=== PATIENT | female | born 1965 | race Two or more races ===

== ENCOUNTER 2019-07-18 19:32 | Emergency (ER) | payer MEDICAID ==
[~2019-07-18] VITALS: Ht 160 cm; Wt 68.2 kg
[2019-07-18] MEDS ORDERED: 0.9% SODIUM CHLORIDE 10 ML SYRINGE IVP PRN (23:30)
[2019-07-18] MEDS ORDERED: MORPHINE SULFATE 4 MG/ML SYRINGE IVP ONE (23:30)
[2019-07-18] MEDS ORDERED: AMPICILLIN SODIUM/SULBACTAM NA 1.5 GM/VIAL IM ONE (23:30)
[2019-07-19 00:01] LABS: BASOPHILS % (AUTO) 0.2 % (0.0-2.0); EOSINOPHILS % (AUTO) 0.1 % (1.0-6.0); HEMATOCRIT 38.9 % (36-46); LYMPHOCYTES # (AUTO) 1.5 K/uL (1.0-4.8); LYMPHOCYTES % (AUTO) 13.6 % (22.0-44.0); MEAN CORPUSCULAR HGB CONC 33.4 G/dL (31.0-37.0); MEAN CORPUSCULAR VOLUME 93 fL (80-100); MONOCYTES # (AUTO) 0.9 K/uL (0.1-1.0); MONOCYTES % (AUTO) 8.6 % (2.0-9.0); NEUTROPHILS # (AUTO) 8.5 K/uL (1.8-7.7); NEUTROPHILS % (AUTO) 77.5 % (40.0-70.0); RED CELL DISTRIBUTION WIDTH 13.1 % (11.5-14.5)
[2019-07-19 00:15] LABS: ANION GAP 9 mmol/L (8-16); CALCIUM, TOTAL 8.8 mg/dL (8.8-10.5); CARBON DIOXIDE 28 mmol/L (22-29); CHLORIDE 103 mmol/L (98-107); CREATININE 0.76 mg/dL (0.60-1.30); GLOMERULAR FILTR. RATE CALC > 60 mL/min (>60); GLUCOSE,RANDOM 118 mg/dL (70-110); POTASSIUM 3.3 mmol/L (3.5-5.1); SODIUM SERUM 140 mmol/L (136-145); UREA NITROGEN, BLOOD 9 mg/dL (7-18)
[2019-07-19] MEDS ORDERED: AMPICILLIN SODIUM/SULBACTAM NA 3 GM/VIAL IM ONE (00:15)
[2019-07-19 00:21] LABS: ALANINE AMINOTRANSFERASE 69 U/L (12-78); ALBUMIN 3.4 g/dL (3.4-5.0); ALKALINE PHOSPHATASE 91 U/L (46-116); ASPARTATE AMINOTRANSFERASE 51 U/L (15-37); BILIRUBIN,TOTAL 0.8 mg/dL (0.1-1.0); TOTAL PROTEIN, SERUM 7.5 g/dL (6.4-8.2)
[2019-07-19 00:24] LABS: LACTIC ACID 0.9 mmol/L (0.4-2.0)
[2019-07-19 00:28] LABS: PLATELET COUNT (AUTO) 97 K/uL (150-450); PLATELET MORPHOLOGY COMMENT LARGE PLTS PRESENT
[2019-07-19] MEDS ORDERED: IOVERSOL 350 MG/ML 100 ML VIAL ONE ×2 (00:36)
[2019-07-19] MEDS ORDERED: SODIUM CHLORIDE 0.9% 100 ML ONE (00:37)
[2019-07-19] MEDS ORDERED: LIDOCAINE/PF 2% 5 ML VIAL INJ ONE (01:00)
[2019-07-19] MEDS ORDERED: POTASSIUM CHLORIDE 10% 40 MEQ/30 ML LIQUID UDCUP PO ONE (04:00)
[2019-07-19] MEDS ORDERED: ACETAMINOPHEN 160 MG/5 ML SUSPENSION UDCUP PO ONE (04:45)
[2019-07-19] MEDS ORDERED: ACETAMINOPHEN 650 MG/20.3 ML SOLUTION UDCUP PO ONE (04:45)
[2019-07-19 05:55] VITALS: BP 123/65
[2019-07-19] MEDS ORDERED: AMPICILLIN SODIUM/SULBACTAM NA 3 GM in SODIUM CHLORIDE 0.9% 100 ML IV ONE (06:15)
== END 2019-07-19 05:55 | disposition short-term general hospital (02) ==
LOC: EMS 19:35
DX: R22.0 Localized swelling, mass and lump, head (principal); K08.89 Other specified disorders of teeth and supporting structures
CPT/HCPCS: 36415; 70487; 80053; 83605; 85025; 93005; 96372; 96374; 99285; J0295; J2270; J3490; J7050; Q9967

== ENCOUNTER 2022-12-14 01:01 | Emergency (ER) | payer MEDICAID ==
[~2022-12-14] VITALS: Ht 154.9 cm; Wt 72.7 kg
[2022-12-14 01:06] VITALS: TEMP 99.7
[2022-12-14 01:21] VITALS: BP 156/84; PULSE 78; RESP 18
[2022-12-14] MEDS ORDERED: IBUP-1493 PO (01:53)
[2022-12-14] MEDS ORDERED: AMOX500C2 PO (01:53)
[2022-12-14] MEDS ORDERED: IBUPROFEN 800 MG TABLET PO ONE (02:00)
[2022-12-14] MEDS ORDERED: HYDROCODONE/ACETAMINOPHEN 5-325 MG TABLET PO ONE (02:00)
[2022-12-14] MEDS ORDERED: AMOXICILLIN TRIHYDRATE 250 MG CAPSULE PO ONE (02:00)
== END 2022-12-14 02:20 | disposition home or self-care (01) ==
LOC: EMS 01:03
DX: K04.7 Periapical abscess without sinus (principal)
CPT/HCPCS: 99284; Z7502; Z7610

== ENCOUNTER 2025-04-10 19:33 | Emergency (ER) | payer MEDICAID, OTHER ==
[~2025-04-10] VITALS: Ht 152.4 cm; Wt 63.6 kg
[~2025-04-10 19:33] MED LIST: AMOX500C2 PO; IBUP-1493 PO
[2025-04-10 20:16] VITALS: TEMP 97.7
[2025-04-10 20:36] LABS: COVID AG,FIA SOURCE NASAL SWAB
[2025-04-10 21:21] LABS: SARS-COV2 (COVID) ANTIGEN,FIA Negative (Negative)
[2025-04-10 21:27] LABS: INFLUENZA TYPE A NEGATIVE FOR TYPE A (NEGATIVE); INFLUENZA TYPE B NEGATIVE FOR TYPE B (NEGATIVE)
[2025-04-10] MEDS: ACETAMINOPHEN 500 MG TABLET PO ONE (22:34)
[2025-04-10] MEDS: ONDANSETRON 4 MG TABLET PO ONE (22:34)
[2025-04-10 22:40] LABS: RED BLOOD CELL COUNT(AUTO) 3.62 MIL/uL (4.00-5.20); RED CELL DISTRIBUTION WIDTH 13.2 % (11.5-14.5); WHITE BLOOD COUNT (AUTO) 8.4 K/uL (4.5-11.0)
[2025-04-10 22:46] LABS: CALCIUM, TOTAL 8.3 mg/dL (8.8-10.5); CREATININE 0.61 mg/dL (0.60-1.30); GLOMERULAR FILTR. RATE CALC > 60 mL/min (>60); GLUCOSE,RANDOM 120 mg/dL (70-110); SODIUM SERUM 138 mmol/L (136-145); UREA NITROGEN, BLOOD 17 mg/dL (7-18)
[2025-04-10 23:28] VITALS: BP 141/72; PULSE 61; RESP 16; O2SAT 98
[2025-04-10 23:38] LABS: PLATELET COUNT (AUTO) 29 K/uL (150-450)
[2025-04-11] MEDS ORDERED: ONDA-104 PO (00:06)
== END 2025-04-11 00:28 | disposition home or self-care (01) ==
LOC: EMS 19:33
DX: B34.9 Viral infection, unspecified (principal); D64.9 Anemia, unspecified; D69.6 Thrombocytopenia, unspecified; I10 Essential (primary) hypertension; Z79.899 Other long term (current) drug therapy; Z20.822 Contact with and (suspected) exposure to COVID-19
CPT/HCPCS: 80048; 85025; 87804; 99283; Q0162